=== PATIENT | female | born 1945 | race Caucasian/White ===

== ENCOUNTER 2017-04-14 20:30 | Outpatient (CLI) | payer MEDICARE, OTHER | END 2017-04-14 20:31 | disposition home or self-care (01) | LOC: SLEEPLAB 20:30 | PROVIDERS: ATTEND Family Medicine | DX: G47.33 Obstructive sleep apnea (adult) (pediatric) (principal); I48.91 Unspecified atrial fibrillation; I10 Essential (primary) hypertension; R06.83 Snoring | CPT/HCPCS: 95811 ==

== ENCOUNTER 2017-05-04 10:44 | Outpatient (CLI) | payer MEDICARE, OTHER ==
--- NOTE | 2017-05-04 14:39 | RAD ---
THREE VIEWS RIGHT ANKLE 05/04/2017 HISTORY: Injury to right ankle on Thursday. FINDINGS: The ankle mortise is congruent. There is no fracture or dislocation seen. Tiny plantar calcaneal enthesophyte is seen. IMPRESSION: No acute osseous abnormality right ankle. POS: [facility]
== END 2017-05-04 10:45 | disposition home or self-care (01) ==
LOC: SCSRAD 10:44
PROVIDERS: ATTEND Family Medicine
DX: M25.571 Pain in right ankle and joints of right foot (principal)

== ENCOUNTER 2017-10-08 10:40 | Outpatient (CLI) | payer MEDICARE, OTHER | END 2017-10-08 10:41 | disposition home or self-care (01) | LOC: BICMAMMO 10:40 | PROVIDERS: ATTEND Family Medicine | DX: Z80.3 Family history of malignant neoplasm of breast; M81.0 Age-related osteoporosis without current pathological fracture; Z12.31 Encounter for screening mammogram for malignant neoplasm of breast | CPT/HCPCS: 77063; 77067; 77080 ==